=== PATIENT | female | born 1940 | race Caucasian/White ===

== ENCOUNTER → 2017-02-21 | Outpatient (CLI) | payer MEDICARE, OTHER ==
[~2017-02-21] MED LIST: ALLEGRA180 MG PO; ASCORBIC ACID500 MG PO; ASPIRIN LO-DOSE81 MG PO; CALCIUM CARBON600 MG PO; CHOLESTYRAMINE L4 GM PO; ESTRACE(ESTRADIO1 MG PO; FLONASE 50 MCG/16 GM NOSE; LEVOTHROID (S125 MCG PO; POTASSIMIN PO; PRENATABS FA T1 EACH PO; RECLAST5 MG/100 M; VALTREX1000 MG PO; VITAMIN B COMP1 EACH PO; VITAMIN D-32000 UNI1 PO; ZINCATE (50 MG220 MG PO
== END | disposition disaster alternative care site (69) ==
LOC: GBCOE 15:03
DX: Z12.31 Encounter for screening mammogram for malignant neoplasm of breast (principal)
CPT/HCPCS: G0202